=== PATIENT | female | born 1980 | race Caucasian/White ===

== ENCOUNTER 2021-02-21 09:06 | Outpatient (CLI) | payer OTHER, SELFPAY ==
--- NOTE | ~2021-02-21 | US_ITS ---
EXAMINATION: US venous doppler LE BI EXAM DATE: 02/21/2021 10:20 INDICATION: I83.813 - Varicose veins of bilateral lower extremities w... TECHNIQUE: Multiple grayscale, color flow and Doppler images of the lower extremity venous systems bi laterally were obtained and reviewed. Saphenous venous mapping. The exam was reviewed on 02/21/2021. There is no prior study for comparison. FINDINGS: Right side: The right common femoral, femoral and profunda veins demonstrate normal color flow, respi ratory variation, augmentation and compressibility. Compressibility, color flow confirmed within the right popliteal, posterior tibial, peroneal, and greater saphenous veins. Right Standing Venous Mapping: reflux seconds duration; vein size. Greater saphenous origin: 0 seconds; 7.3 mm. Greater saphenous mid thigh:------ Greater than 4 seconds; 4.6 mm. Greater saphenous below knee:--- 0 seconds; 2.1 mm. Multiple branches. Lesser saphenous proximally:------ 0 seconds; 1.5 mm. Lesser saphenous distally: Too small to evaluate Left side: The left common femoral, femoral and profunda veins demonstrate normal color flow, respira tory variation, augmentation and compressibility. Compressibility, color flow confirmed within the l eft popliteal, posterior tibial, peroneal, and greater saphenous veins. Left Standing Venous Mapping: reflux seconds duration; vein size. Greater saphenous origin: Greater than 4 seconds; 8.5 mm. Greater saphenous mid thigh:------ Greater than 4 seconds; 4.2 mm. Greater saphenous below knee:--- 0 seconds; 2.1 mm. Lesser saphenous proximally:------ 0 seconds; 1.5 mm. Lesser saphenous distally: Too small to evaluate IMPRESSION: 1. Bilateral greater saphenous venous reflux. 2. Measurements as above. Reviewed, dictated and finalized at location A.
== END 2021-02-21 09:07 | disposition home or self-care (01) ==
LOC: ANHIMG 09:10
PROVIDERS: PCP Internal Medicine; Visit Provider Nurse Practitioner
DX: I83.813 Varicose veins of bilateral lower extremities with pain (principal)
CPT/HCPCS: 93970

== ENCOUNTER → 2022-05-14 09:24 | Outpatient (CLI) | payer OTHER, SELFPAY ==
--- NOTE | ~2022-05-14 | XR_ITS ---
XR chest 2V DATE: 05/14/2022 09:49 INDICATION: Cough, shortness of breath TECHNIQUE: 2 views COMPARISON: None FINDINGS: Normal heart size. No hilar or mediastinal enlargement. No pulmonary infiltrate or consolid ation, pleural effusion or pulmonary vascular congestion or pneumothorax. Included skeletal structure s are unremarkable. IMPRESSION: Negative Reviewed, dictated and finalized at location B. [employer] IMPRESSION: Negative
== END ==
PROVIDERS: PCP Clinical Nurse Specialist; Visit Provider Clinical Nurse Specialist
DX: R05.9 Cough, unspecified (principal); R06.02 Shortness of breath
CPT/HCPCS: 71046